=== PATIENT | female | born 1960 | race Caucasian/White ===

== ENCOUNTER → 2018-11-20 | Outpatient (CLI) | payer OTHER ==
[~2018-11-20] VITALS: Ht 167.6 cm; Wt 115.7 kg
[~2018-11-20] MED LIST: ASPIR 8181 MG PO; BYSTOLIC 5 MG5 M1 PO; CRESTOR40 MG PO; LISINOPRIL-HCT1 EAC1 PO; OMEPRAZOLE 20 M20 M1 PO; PROZAC10 MG PO; SYNTHROID150 MCG PO; ZYRTEC10 M5 PO
[2018-11-20 07:12] VITALS: BP 123/60
--- NOTE | 2018-11-20 08:22 | EKG ---
[place] [address] [facility] [place] [address] ELECTROCARDIOGRAM REPORT Name: JONNY SU Room #: [employer]#: [id number] ������������������ Admission: 11/20/18 ������������������ Attend Phys: Jose David Sena MD, Discharge: ������������������ Date of : 64 Report #: [id number] ����������������������������������������������������������������� [id number] THIS REPORT FOR: //name// [facility] Test Date: 2018-11-20 Test Time: 07:01:35 Pat Name: JONNY SU Department: Room: Gender: F Stick Welder: Meir BANKS : 1960 Requested By: Jose David Sena Order Number: [id number] : Tin Pablo Measurements Intervals [place] Rate: 52 P: 34 WY: 237 QRS: 5 QRSD: 84 T: 28 QT: 429 QTc: 399 Interpretive Statements Sinus rhythm Prolonged W[place] interval Low voltage, precordial leads No previous ECG available for comparison Electronically Signed On 11-20-2018 8:22:44 CDT by Tin Pablo [email or web address] ��������������������������������������������� <ELECTRONICALLY SIGNED> ���������������������������������������� By: Tin Pablo MD ��������������������������������������������� 11/20/18821 0 0 iTn Pablo MD /JOSTIN
--- NOTE | 2018-11-20 08:42 | CATHLAB ---
[facility] [address] [place] [address] INVASIVE PROCEDURE REPORT Name: JONNY SU Room #: REG [facility]#: [id number] ������������� Admission: 11/20/18 ������������� Attend Phys: Jose David Sena, Discharge: ��� ������������� ��� Date of : 64 Date of Service: 11/20/18 0842 �� Report #: [id number] �������� ��������������������������������������������[id number] THIS REPORT FOR: //name// APPROVED REPORT Study performed: 11/20/2018 07:28:51 Patient Details Patient Status: Out-Patient Room #: The patient is a 58 year-old female Event Personnel Jose David Sena Block Hacker, Alison Cruz RTR, TICKET MACHINE OPERATOR Monitor, Chica Cornejo RN RN, Gay Schulte RN RN, Kavita Love Scrcyndy Procedures Performed Art Access - R femoral artery* Left Heart Cath w/or w/o Coronaries [id number] [facility] 11038 Initial Mod Sed Same Phys/QHP Gr5y [id number] Hemostasis w/ Mynx Indication Positive stress test Procedure Narrative The patient was brought electively to the Cardiac Catheterization Laboratory and was prepped and draped in a sterile manner. The Right Groin^ was infiltrated with 1% Lidocaine subcutaneous anesthesia. A PINNACLE 6FR Sheath #[id number] sheath was inserted into the RFA^. Coronary angiography was performed using coronary diagnostic catheters. The right coronary system was accessed and visualized with a JR4 catheter. The left coronary system was accessed and visualized with a JL4 catheter. The left ventricle was accessed and visualized with a angled Pigtail catheter. Left ventricular/Aortic Valve gradient assessed via catheter pullback. Left ventriculogram was performed in 30 degree projection. Closure device was deployed with a 6 Fr MYNXGRIP 6/7F #[id number]. The patient tolerated the procedure well and there were no complications associated with the procedure. There was no hematoma. Intraoperative Conscious Sedation Sedation start time: 07:44 Case end Time: 08:19 Fentanyl 50 mcg Versed 1 mg [facility] [place] [address] INVASIVE PROCEDURE REPORT Name: JONNY SU Room #: [facility]#: [id number] ������������� Admission: 11/20/18 ������������� Attend Phys: Jose David Sena, Discharge: ��� ������������� ��� Date of : 64 Date of Service: 11/20/18 0842 �� Report #: [id number] �������� ��������������������������������������������[id number] Fluoro Time: 1.16 minutes Dose: DAP 4290.50 cGycm2 516 mGy Contrast Type and Amount: Omnipaque 100 ml Coronary Angiography The patient's coronary anatomy is co- dominant. Diagnostic Cath Left Main Normal left main LAD Mild 20-30% proximal calcific plaquing Diagonal 1 Mild plaquing at the origin of the first diagonal branch Circumflex Large, codominant circumflex. OM1 The first marginal branch was angiographically normal, bifurcated in its midportion OM2 Second marginal branch was angiographically normal and provided a portion of the posterior descending Right Coronary The right coronary was codominant and angiographically normal R PDA Normal moderate size posterior descending branch Left Ventriculography The left ventricle is normal in size with normal contractility. The left ventricular ejection fraction is estimated to be 60-65%. Left ventricular wall motion abnormalities are not present. There is no mitral insufficiency. Hemodynamics The aortic pressure is 133/66 mmHg with a mean of 93 mmHg. The left ventricular pressure is 133/14 mmHg with a mean of mmHg. The left ventricular end diastolic pressure is 31 mmHg. Conclusion 1. Normal global and regional left ventricular systolic function. Ejection fraction 65% 2. Normal left main 3. Mild 20-30% proximal calcific LAD plaquing 4. Normal codominant circumflex 5. Normal right coronary Recommendations Aggressive Medical Therapy ��������������������������������������������� <ELECTRONICALLY SIGNED> ���������������������������������������� By: Jose David Sena MD, FACC ��������������������������������������������� 11/20/18 0842 0842 0842 Joes David Sena MD, FACC /INF
== END | disposition home or self-care (01) ==
LOC: CATH 06:33
DX: I25.10 Atherosclerotic heart disease of native coronary artery without angina pectoris (principal); I10 Essential (primary) hypertension; E78.5 Hyperlipidemia, unspecified; E03.9 Hypothyroidism, unspecified; K21.9 Gastro-esophageal reflux disease without esophagitis; F41.9 Anxiety disorder, unspecified; F32.9 Major depressive disorder, single episode, unspecified; G47.33 Obstructive sleep apnea (adult) (pediatric); Z87.19 Personal history of other diseases of the digestive system; Z87.891 Personal history of nicotine dependence; Z82.49 Family history of ischemic heart disease and other diseases of the circulatory system; Z98.890 Other specified postprocedural states; Z79.899 Other long term (current) drug therapy